=== PATIENT | female | born 1950 | race Caucasian/White ===

== ENCOUNTER 2019-03-27 09:45 | Outpatient (CLI) | payer MEDICARE, BC, SELFPAY ==
--- NOTE | 2019-03-27 09:43 | DI.RAD_ITS ---
SYMPTOMS/DIAGNOSIS: MILLER KNEE PAIN LEG LENGTH EXAM AND BILATERAL KNEES: In the left knee there is moderate narrowing of the lateral femoral tibial joint space. Mild periarticular spurring is seen at the posterior patella. There is a small joint effusion present. In the right knee there is moderate narrowing of the medial femoral tibial joint space and patellar spurring present. The right lower extremity measures 84.4 cm. The left lower extremity measures 85.1 cm. Smooth cortical thickening is seen in the mid shaft of the right femur. This appears to reflect an old femoral fracture. IMPRESSION: Bilateral osteoarthritis of the knees.
== END 2019-03-27 10:05 ==
PROVIDERS: PCP Family Medicine; Referring Provider Family Medicine; Visit Provider Student in an Organized Health Care Education/Training Program
DX: M25.561 Pain in right knee (principal); M25.562 Pain in left knee; M25.462 Effusion, left knee; M17.0 Bilateral primary osteoarthritis of knee; M21.70 Unequal limb length (acquired), unspecified site
CPT/HCPCS: 99203; 99204; 73560; 77073

== ENCOUNTER 2019-04-02 13:49 | Outpatient (CLI) | payer MEDICARE, BC, SELFPAY ==
[2019-04-02 15:17] LABS: HCT 42.9 % (36.0-46.0); HGB 14.1 g/dL (12.0-15.5); Mean Corp. HGB Concentration 32.9 g/dL (32.0-36.0); Mean Corpuscular Volume 88.3 fL (80-95); Mean Platelet Volume 9.4 fL (8.0-11.0); Platelet Count 268 x1000/uL (130-400); RBC 4.86 m/cumm (4.00-5.20); RBC Distribution Width 13.7 % (11.7-14.6); White Blood Cell Count 5.74 k/cumm (4.4-10.8)
[2019-04-02 16:05] LABS: Anion Gap 8.8 mmol/L (3-11); BUN 20 mg/dL (7-18); CO2 29.2 mmol/L (21.0-32.0); CREATININE 0.82 mg/dL (0.55-1.02); Calcium 9.6 mg/dL (8.5-10.1); Chloride 105 mmol/L (98-107); Glucose 100 mg/dL (70-100); Potassium 4.3 mmol/L (3.5-5.1); Sodium 143 mmol/L (136-145)
--- NOTE | 2019-04-02 16:27 | W.PREOPHP ---
Date of service: 04/02/19 Time of Service: 13:27 Assessment and Plan (1) Primary osteoarthritis of left knee: Current visit: Yes Status: Chronic The patient and spouse are given an overview of the surgical procedure with prosthetic components to help delineate fully what will happen on her day of surgery on 04/09/2019. The possible complications and measures used to ameliorate those complications are reviewed. The patient brings a long list of questions to review which I addressed to make sure she is comfortable for what she is about to undertake. Her participation with range of motion after surgery is impressed upon her to get optimal result. History of Present Illness Chief Complaint: left knee pain Narrative: jd is seen with a multiple year of progressive bilateral knee pain left> right unrelived by nsaids and previous injective therapy performed at [facility] becoming less effective. She has had standing plain films that show significant OA with [id number] contact laterally with medial compartment narrowing as well with periarticular osteophytes throughout her knees. Her left knee is radiographically worse than her right prompting the recommendation to do left TKA first so she can resume her active lifestyle pain-free and improve her functional quality of life. Pertinent Surgical Information Denies previous medical history of: stroke, TIA, IA, use of sublingual nitroglycerin, GERD, seizures, diabetes, thyroid disease, sleep apnea, liver disease, hepatitis, hematologic disorders Denies previous complications from surgery or anesthesic agents with respect to high fever, prolonged vomiting and difficulty waking up Review of Systems Constitutional Denies fever(s) and Denies headache(s) ENT Denies headache(s), Denies nasal congestion, Denies nasal discharge and Denies sore throat Cardiovascular Denies chest pain, Denies chest pain with activity, Denies palpitations, Denies dyspnea on exertion, Denies orthopnea and Denies paroxysmal nocturnal dyspnea Respiratory Denies cough, Denies excessive phlegm production, Denies pain on inspiration, Denies dyspnea on exertion and Denies wheezing Gastrointestinal Denies abdominal pain, Denies melena, Denies hematochezia, Denies nausea and Denies vomiting Genitourinary Denies hematuria, Denies urinary frequency and Denies dysuria Comments: Denies burning sensation with urination Musculoskeletal Reports as per HPI Neurologic Denies headache(s) Psychiatric Denies anxiety and Denies depression Endocrine Denies palpitations Comments: Denies any unplanned weight changes Allergic/Immunologic Denies wheezing PFSH Medical History History of postoperative nausea and vomiting (Acute) Depression (Chronic) GERD (gastroesophageal reflux disease) (Chronic) Hypothyroidism Surgical History Hx of decompression of ulnar nerve (Acute) Hx of joint surgery (Acute) section Colonoscopy - MAC Extraction of cataract Repair, Rotator Cuff Family History Mother Alcohol abuse Depression Neoplasm Father Hyperlipidemia Brother Diabetes Hyperlipidemia Grandfather Alcohol abuse Grandmother Glaucoma Grandfather Heart disease Hyperlipidemia Grandmother Diabetes Daughter Essential hypertension Depression Asthma Daughter Essential hypertension Depression Social History Smoking/Tobacco Use Status: Current every day Drug use: Never Meds Home Medications Medication Instructions Recorded Confirmed Type bupropion HCl (smoking deter) 150 mg PO BID #180 tab-cap 07/26/17 04/02/19 Rx simvastatin 40 mg tablet 40 mg PO DAILY #90 tab-cap 08/07/18 04/02/19 Rx levothyroxine 50 mcg tablet 50 mcg PO DAILY #90 tab-cap 02/18/19 04/02/19 Rx omeprazole magnesium 20 mg 20 mg PO DAILY #90 tab 02/18/19 04/02/19 Rx tablet,delayed release L. acidophilus 5 mg-digestive 1 cap PO DAILY cap 04/02/19 04/02/19 History enzymes combo no.5 250 mg capsule cholecalciferol (vitamin D3) 2,000 2,000 unit PO DAILY 04/02/19 04/02/19 History unit capsule ibuprofen 200 mg tablet 800 mg PO BID PRN tab 04/02/19 04/02/19 History naproxen sodium 220 mg capsule 220 mg PO HS PRN cap 04/02/19 04/02/19 History Allergies Allergy/AdvReac Type Severity Reaction Status Date / Time No Known Allergies Allergy Unverified 04/02/19 12:53 Exam Const General: cooperative HENMT Throat: posterior oropharynx normal Eyes General: appearance normal, both eyes and all related structures Conjunctivae: conjunctivae normal Sclera: sclerae normal Neck Neck: no JVD Carotids: normal carotid upstroke and no bruits Resp Effort & Inspection: normal respiratory effort and able to speak in complete sentences Auscultation: clear to auscultation bilaterally, no rales, no rhonchi and no wheezes Cardio Rate: regular rate Heart Sounds: S1 normal, S2 normal and no murmurs Bruits: no abdominal aortic bruits Pulses: normal peripheral pulses Other: No pulsatile mass noted with palpation over the abdominal aorta GI Palpation: soft and no hepatosplenomegaly Auscultation: normal bowel sounds General: No CVA tenderness Extrem General: no pedal edema Other: Normal sensation to light touch No web space cracks or splits noted normal distal pulses. Left knee has a valgus deformity with full extension and flexion intact to 130 degrees Results Labs : 04/02/19 15:04 04/02/19 15:04 Laboratory Results - last 24 hr 04/02/19 04/02/19 15:04 15:04 WBC 5.74 RBC 4.86 Hgb 14.1 Hct 42.9 MCV 88.3 MCH 29.0 MCHC 32.9 RDW 13.7 Plt Count 268 MPV 9.4 Sodium 143 Potassium 4.3 Chloride 105 Carbon Dioxide 29.2 Anion Gap 8.8 BUN 20 H Creatinine 0.82 Estimated GFR/1.73 m2 >= 60.00 Glucose 100 Calcium 9.6
== END 2019-04-02 14:09 ==
PROVIDERS: PCP Family Medicine; Visit Provider Student in an Organized Health Care Education/Training Program
DX: Z01.818 Encounter for other preprocedural examination (principal); K21.9 Gastro-esophageal reflux disease without esophagitis; M17.12 Unilateral primary osteoarthritis, left knee
CPT/HCPCS: 36415; 80048; 85027; NC OV

== ENCOUNTER 2019-04-09 08:49 | Inpatient (IN) | payer MEDICARE, BC, SELFPAY ==
[2019-04-02 14:12] VITALS: BP 118/76; PULSE 65; RESP 16; TEMP 36.2; O2SAT 98
[2019-04-09] VITALS (18 sets, daily range): BP systolic 108–145; BP diastolic 58–86; PULSE 64–77; RESP 11–20; TEMP 36–36.6; O2SAT 92–99
[2019-04-09] MEDS: Celecoxib 200 MG CAP 400 MG PO (09:26)
[2019-04-09] MEDS: Acetaminophen 500 MG TAB 1000 MG PO (09:26)
[2019-04-09] MEDS: oxyCODONE-CR 10 MG TABCR PO (09:26)
[2019-04-09] MEDS: Lactated Ringers 1,000 ML 80 ML IV ×3 (09:27→14:32)
[2019-04-09] MEDS: Gabapentin 300 MG CAP PO ×2 (09:27→22:20)
[2019-04-09] MEDS: Bupivacaine 0.25% Pres-Free 10 ML VIAL (10:10)
[2019-04-09] MEDS: Bupivacaine LIPOSOME/PF 133 MG/10 ML VIAL IJ ×2 (10:10→12:05)
[2019-04-09] MEDS: ceFAZolin 2 GM/50 ML BAG IVPB (10:50)
[2019-04-09] MEDS: Ketorolac 30 MG/ML VIAL (12:05)
[2019-04-09] MEDS: Bupivacaine 0.25% Pres-Free 30 ML VIAL (12:05)
[2019-04-09] MEDS: Normal Saline 50 ML (12:05)
[2019-04-09] MEDS: Normal Saline Flush 10 ML SYR IV ×3 (14:31→18:12)
--- NOTE | 2019-04-09 16:05 | PT.INIE ---
Date of service: 04/09/19 Time of Service: 15:40 PT Notes Inpatient Physical Therapy Evaluation Date: 04/09/19 Referring Doctor: Dr. Monk PT Orders: PT CONSULT: s/p L TKA Precautions: fall, standard Patient Profile/Admitting Diagnosis: Patient admitted s/p L TKA post op day 0. PMHX: h/o left knee injections Social History/Home Situation: [place] between [place] and [place]. [place] in [place] the [place], she lives in a 40' camper at [facility]. She has 3 GEMA with single rail, then 2 GEMA her bedroom. Her is present at time of evaluation, and reports that Edna is very active at baseline, although has been limited in the past year by her knee pain. Equipment Owned/DME: none Subjective: Edna reports that she is still feeling extremely nauseous. States that she's been vomiting and does not feel able to get up at this time. She is receptive to initiation of bed exercises and education. Objective: General Observation: Resting in bed with NAGI wrap and cryocuff to LLE. She has an IV in [facility]. Mental Status: A&Ox3. Verbalizes severe nausea, particularly with head movements. Pain: 0/10 ROM: Right Upper Extremity: WFL Left Upper Extremity: WFL Right Lower Extremity: WFL Left Lower Extremity: Left hip ROM is WFL. Knee is resting in full extension. Knee flexion was not assessed. Strength: Right Upper Extremity: WFL Left Upper Extremity: WFL Right Lower Extremity: WFL Left Lower Extremity: Ankle DF is 3/5 or greater. She's functionally able to perform SLR without extension lag. Sensation: intact distally Bed Mobility/Transfers: Unable to perform due to nausea and vomiting. Gait: Unable to assess Balance: Static Sitting: unable to assess due to nausea Dynamic Sitting: unable to assess due to nausea Static Standing: unable to assess due to nausea Dynamic Standing: unable to assess due to nausea Special Tests: Mobility Limitations Standardized Measure [facility] AM-PAC 6 clicks Basic Mobility Inpatient Short Form: Raw Score: 9 CMS Score: 81% deficit Informed Consent/Education: Patient instructed in purpose of PT consult and plan of care. Treatment: Patient was instructed in early open chain strengthening activities as follows: 1. ankle pumps x 10 2. quad sets x 10 3. gluteal sets x 10 4. SLR x 5 Assessment: Patient is a 68 year old female referred to physical therapy services with the diagnosis of left knee OA, s/p L TKA post op day 0. Patient presents with clinical signs and symptoms consistent with post-op status, with limited functional mobility due to post-operative nausea. She currently demonstrates the following impairment level findings: 1. Decreased L knee ROM 2. Decreased LLE functional strength 3. Decreased activity tolerance 4. Unable to transfer Impairments are contributing to the following functional limitations: 1. Unable to transfer 2. Unable to ambulate 3. Unable to manage stairs Patient is assessed as a Low [id number] complexity based on the following: History: Active and independent 68 year old female, post op day 0 from L TKA. Evaluation is limited due to post-operative nausea and vomiting. Patient does not have any significant complicating factors, and has supportive family present at time of evaluation. She expresses her desire to do well with PT, and I anticipate that she will progress very well once she fully recovers from anesthesia. Examination: functional limitations as above Presentation: evolving Decision Making: low complexity Goals: Goals X1 week 1. Supine-Sit : supervision 2. Sit-Supine : supervision 3. Sit-Stand : supervision 4. Stand-Sit : supervision 5. Bed-Chair : supervision with FWW 6. Chair-Bed : supervision with FWW 7. Gait : supervision with FWW x 100' 8. Stairs: patient able to ascend and descend 3 steps with unilateral UE support and supervision 9. Independent with home exercise program Plan of Care/Treatment Plan: 1-2x/day, 7 days/week x 1 week. Plan of care has been reviewed with the CLINCHING MACHINE OPERATOR providing the service under Physical Therapy direction. Initiate Physical Therapy intervention for strengthening, bed mobility, transfers, gait, stairs, balance training, use of assistive device. DISCHARGE RECOMMENDATIONS: Will require FWW prior to discharge TREATMENT CODE/TIME: 3:40-4:00 ([id number]) Emelyn Zazueta, PT, DPT [facility]
--- NOTE | 2019-04-09 16:20 | IN_ITS ---
Date of service: 04/09/19 Time of Service: 15:40 PT Notes Inpatient Physical Therapy Evaluation Date: 04/09/19 Referring Doctor: Dr. Monk PT Orders: PT CONSULT: s/p L TKA Precautions: fall, standard Patient Profile/Admitting Diagnosis: Patient admitted s/p L TKA post op day 0. PMHX: h/o left knee injections Social History/Home Situation: Patient splits her time between [place] and [place]. While here in [place] for the summer, she lives in a 40' camper at [facility]. She has 3 GEMA with single rail, then 2 GEMA her bedroom. Her is present at time of evaluation, and reports that Edna is very active at baseline, although has been limited in the past year by her knee pain. Equipment Owned/DME: none Subjective: Edna reports that she is still feeling extremely nauseous. States that she's been vomiting and does not feel able to get up at this time. She is receptive to initiation of bed exercises and education. Objective: General Observation: Resting in bed with NAGI wrap and cryocuff to LLE. She has an IV in [facility]. Mental Status: A&Ox3. Verbalizes severe nausea, particularly with head movements. Pain: 0/10 ROM: Right Upper Extremity: WFL Left Upper Extremity: WFL Right Lower Extremity: WFL Left Lower Extremity: Left hip ROM is WFL. Knee is resting in full extension. Knee flexion was not assessed. Strength: Right Upper Extremity: WFL Left Upper Extremity: WFL Right Lower Extremity: WFL Left Lower Extremity: Ankle DF is 3/5 or greater. She's functionally able to perform SLR without extension lag. Sensation: intact distally Bed Mobility/Transfers: Unable to perform due to nausea and vomiting. Gait: Unable to assess Balance: Static Sitting: unable to assess due to nausea Dynamic Sitting: unable to assess due to nausea Static Standing: unable to assess due to nausea Dynamic Standing: unable to assess due to nausea Special Tests: Mobility Limitations Standardized Measure [facility] AM-PAC 6 clicks Basic Mobility Inpatient Short Form: Raw Score: 9 CMS Score: 81% deficit Informed Consent/Education: Patient instructed in purpose of PT consult and plan of care. Treatment: Patient was instructed in early open chain strengthening activities as follows: 1. ankle pumps x 10 2. quad sets x 10 3. gluteal sets x 10 4. SLR x 5 Assessment: Patient is a 68 year old female referred to physical therapy services with the diagnosis of left knee OA, s/p L TKA post op day 0. Patient presents with clinical signs and symptoms consistent with post-op status, with limited functional mobility due to post-operative nausea. She currently demonstrates the following impairment level findings: 1. Decreased L knee ROM 2. Decreased LLE functional strength 3. Decreased activity tolerance 4. Unable to transfer Impairments are contributing to the following functional limitations: 1. Unable to transfer 2. Unable to ambulate 3. Unable to manage stairs Patient is assessed as a Low [id number] complexity based on the following: History: Active and independent 68 year old female, post op day 0 from L TKA. Evaluation is limited due to post-operative nausea and vomiting. Patient does not have any significant complicating factors, and has supportive family present at time of evaluation. She expresses her desire to do well with PT, and I anticipate that she will progress very well once she fully recovers from anesthesia. Examination: functional limitations as above Presentation: evolving Decision Making: low complexity Goals: Goals X1 week 1. Supine-Sit : supervision 2. Sit-Supine : supervision 3. Sit-Stand : supervision 4. Stand-Sit : supervision 5. Bed-Chair : supervision with FWW 6. Chair-Bed : supervision with FWW 7. Gait : supervision with FWW x 100' 8. Stairs: patient able to ascend and descend 3 steps with unilateral UE support and supervision 9. Independent with home exercise program Plan of Care/Treatment Plan: 1-2x/day, 7 days/week x 1 week. Plan of care has been reviewed with the SOLAR SALES CONSULTANT providing the service under Physical Therapy direction. Initiate Physical Therapy intervention for strengthening, bed mobility, transfers, gait, stairs, balance training, use of assistive device. DISCHARGE RECOMMENDATIONS: Will require FWW prior to discharge TREATMENT CODE/TIME: 3:40-4:00 ([id number]) Emelyn Zazueta, PT, DPT [facility]
[2019-04-09] MEDS: LORazepam 2 MG/ML VIAL 0.5 MG IVP (16:43)
[2019-04-09] MEDS: Ondansetron 4 MG/2 ML VIAL IVP (18:11)
[2019-04-09] MEDS: buPROPion-CR 150 MG TABCR PO (20:13)
[2019-04-09] MEDS: Aspirin E.C. 81 MG TABEC (20:14)
[2019-04-09] MEDS: Celecoxib 200 MG CAP PO (20:14)
[2019-04-09] MEDS: Simvastatin 40 MG TAB PO (20:14)
[2019-04-09] MEDS: oxyCODONE 5 MG TAB PO (22:19)
[2019-04-10] MEDS: Lactated Ringers 1,000 ML 80 ML IV (03:31)
[2019-04-10 03:35] VITALS: BP 114/67; PULSE 71; RESP 18; TEMP 36.6; O2SAT 98
[2019-04-10] MEDS: oxyCODONE 5 MG TAB PO ×2 (03:48→16:25)
[2019-04-10] MEDS: Levothyroxine 50 MCG TAB PO (06:09)
--- NOTE | 2019-04-10 06:36 | ROE_ITS ---
Date of service: 04/09/19 Time of Service: 13:33 Operative Note DATE OF PROCEDURE: 04/09/19 PRE-OP DIAGNOSIS: Left knee osteoarthritis POST-OP DIAGNOSIS: same PROCEDURE: Left Total Knee Replacement SURGEON: Galo Monk INSULATION CUTTER AND FORMER: Ruiz Calderon ANESTHESIA: regional and spinal ESTIMATED BLOOD LOSS: 100 PATHOLOGY: none sent COMPLICATIONS: None Patient was transported to: PACU Patient's condition: stable Implants: 1. Depuy Attune Posterior Stabilized Femoral Component, Size 4 2. Depuy Attune Fixed Platform Tibial Component, Size 3 3. Depuy Attune 4 x 8 mm fixed, Stabilized Poly 4. Depuy Attune Patellar Component, Size 32 mm Indications: I have seen Edna in clinic for symptoms of left knee arthritis, confirmed with radiographic findings. She has exhausted nonoperative methods and was having significant limitations in daily function and desired better function and less pain. I discussed the technical details of a knee replacement. I explained the risks of the procedure to include, but not limited to, bleeding, infection, pain, stiffness, fracture, damage to nerves and vessels, damage to muscles and tendons, loosening, need for repeat procedure, blood clot and cardiopulmonary demise. Despite these risks, she elected to proceed. Findings: There was significant signs of arthritis throughout the knee. These are most pronounced in the lateral compartment especially lateral femur which had no notable cartilage over his distal end. Procedure Description: Edna was greeted in the preoperative holding area where the correct side was identified and marked. The consent was reviewed with the patient and signed. The history and physical was updated. All questions were answered. Preoperative mediacations were administered: Acetaminophen 1000mg, Celebrex 400mg, Gabapentin 300mg, and Oxycontin 10mg. An adductor canal block was then administered by the anesthesia team in the PACU. Edna was taken back to the operating room. A spinal anesthestic was then administered. The patient was placed into the supine position on the operating room table. A nonsterile tourniquet was placed high onto the leg but only used for cementing. Posts were placed for positioning during the procedure. All bony prominences were well padded. Prophylactic antibiotics in the form of cefazolin were administered. 1g of Tranxemic Acid was given intravenously within 30 minutes of incision. The left leg was then prepped with Chloraprep and draped in a standard fashion with impervious stockinette and extremity drape with Iodine impregnated skin protection. A timeout to confirm correct identity, side and site, procedure, allergies, anesthesia, and medical concerns was performed. With the knee in some flexion, a midline incision was made overlying the knee. Full thickness skin flaps were raised once the extensor mechanism was encountered. These were raised medially and laterally. Any bleeding was controlled with electrocautery. Once the extensor mechanism was fully exposed, a medial parapatellar arthrotomy was performed in a flexed position. All bleeding from the arthrotomy and the geniculate arteries was coagulated. A medial subperiosteal peel was performed with electrocautery to the midcoronal plane. The fat pad was removed while keeping the patellar tendon protected. The anterior distal femur synovium was removed for later visualization. The ACL and PCL were resected and the anterior horn of the lateral meniscus was transected. The knee was then flexed with the patella everted. Using a step drill, and based on preoperative templating, the femoral canal was entered. This was done with a step drill without any difficulty. The intramedullary distal femoral cut guide was inserted, set to a 5 degree valgus cut and 9mm cut thickness. There was some hypoplasia of the lateral femoral condyle and any remnant cartilage of the medial femoral condyle was removed for appropriate thickness. The distal femoral cut guide was then held in position and pinned. With the soft tissues protected, the distal cut was performed. This was passed over a few times to ensure a planar cut. I then turned attention to the tibia. The extramedullary guide was placed onto the leg. The distal aspect was slid medial to adjust for position of center of ankle and stay in line with shaft of the tibia. Approximately 3-5 degrees of posterior slope was kept in the proximal cutting guide. The center of the guide was aligned with the PCL. The stylus was used to assess cut thickness. The lateral side was set for a 4 mm cut. This was then held in position and pinned into place with 2 additional pins and a cross pin for stability. The medial and lateral collateral ligaments were protected and the cut was performed. With this completed, it was assessed and noted to be of appropriate dimensions. The guide was removed. A spacer block was inserted and the knee was brought into extension. The 7 mm spacer block provided full extension, without hyperextension and with stability of both the medial and lateral collateral ligaments was assessed. The pins from the femur and the tibia were then removed. The distal femur was then sized. The anterior stylus was placed onto the late ral ridge of the anterior femur. This indicated a size 4 femur. The external rotation of the guide was adjusted to 5 degrees to match the epicondylar axis, perpendicular to Bacon?s line. The 4-in-1 cutting guide was the placed. The posterior medial femur cut was evaluated and appeared of good thickness. The spacer block was inserted underneath the cutting guide and stability was confirmed in 90 degrees of flexion. An cy wing was used to confirm appropriate position of the anterior cut to avoid notching. This cutting guide was ensured to be flush on the cut surface and then pinned into place with headed pins. While protecting the soft tissues, quad tendon, and collateral ligaments, the anterior and posterior cuts were performed with a saw. The central two pins were removed and the posterior and anterior chamfers were cut next. The notch-cutting guide was placed. This was pinned to lateralize the femoral component as much as possible while keeping it flush on the cut surface. This was then pinned into position. A reciprocating saw was used to make the notch cut. A rasp smoothed the cut surfaces. A trial posterior stabilized femoral component was then inserted, impacted down to the cut surfaces, and the lug holes were drilled. A provisional trial tibial component was placed and the knee was brought through range of motion. The polyethylene was trialed until there was good flexion and extension with excellent stability to the medial and lateral collaterals. The patella was tracking without thumbs. The tibial cut surface was fully exposed. The medial and lateral menisci were removed. The tibia was then sized as a 3. The tibia had been previously marked during trialing to correspond to the center of the tibial component to help with rotation. The trial was aligned to this ruiz, approximately rotated to the medial 1/3rd of the tibial tubercle. The trial was pinned into place. The tibia was prepared with a reamer and a keel punch. The knee was then brought into extension and the patella was measured as 22 mm. Using the patellar clamp and cut guide, this was resected to a flat surface with at least 13mm of thickness remaining. The size 32 mm patella fit the best. This was oriented and then clamped into position. The lugs were drilled. The trial components were removed. The final components, except for the polyethylene were opened on the back table. The periosteal and capsular tissues, especially posteriorly, around the knee were then systematically injected with a periarticular cocktail consisting of 50cc 0.25% Marcaine, 30mg Ketorolac, 20cc of Exparal and 50cc of injectable saline. The tourniquet was then inflated to 275mmHg. The knee was thoroughly irrigated with a pulse lavage and dried. On the back table, with the implants opened, the cement was mixed. 2 batches of antibiotic laden cement were prepared with vacuum assistance. After the cement was ready a small amount was placed on to the back side of the tibial component at the keel. A small amount was placed onto the posterior flange of the femur. Cement was manual pressurized and impregnated into the cut surface of the tibia. The tibial component was then inserted into the cut surface and impacted into position. Excess cement was removed and the component was reimpacted. Again, excess cement was removed and our attention was then turned to the femur. The femoral cut surface was once again dried and cement was manually impacted into the cut surface. The femoral component was lined with the lug holes and impacted. Excess cement was removed. It was ensured to be down against the cut surface. The trial polyethylene was then inserted and the leg was brought out into full extension for the duration of the cement curing process, approximately 15min. Cement was lastly manually impacted into the cut surface of the patella and the patellar button was clamped into position and held. During this process attention was turned to the gutters of the knee and for all interfaces for any excess cement. After the cement had finally cured, approximately 15min, the clamp was removed from the patella and the knee was taken through range of motion. A size 8 mm polyethylene component provided the best range of motion and stability with less than 2mm gapping with medial and lateral stress and full extension without significant hyperextension. The patella was tracking with a no-thumbs technique. The trial poly was removed and once again the knee was checked for any loose, excess, or errant cement. The poly component was then inserted and impacted into position after cleaning and drying the tibial tray. The capsule was then reapproximated with a No. 1 Vicryl at multiple locations. The capsule was finally closed with a No. 2 Stratafix, barbed suture. The tourniquet was then released and the arthrotomy appeared watertight without significant bleeding. The second dosing of 1g TXA was started. Deep tissues were then reapproximated with 0 Vicryl and 2-0 Vicryl. The skin was closed with a running 3-0 Monocryl in a subcuticular fashion. This was reinforced with skin glue. A Mepilex silver dressing was applied along with a [id number] NAGI wrap. A CryoCuff was applied. Edna was transferred to the hospital bed without difficulty an suffering no apparent complication. Edna has a good prognosis. Physical therapy will start today and without restrictions, weight-bearing as tolerated. Aspirin 81mg BID will be used for DVT prophylaxis.
[2019-04-10] MEDS: Omeprazole 20 MG CAPCR PO (08:02)
[2019-04-10 08:09] VITALS: BP 121/78; PULSE 78; RESP 18; TEMP 36.1; O2SAT 98
--- NOTE | 2019-04-10 09:01 | PT.INTREAT ---
Date of service: 04/10/19 Time of Service: 09:01 PT Notes Inpatient Physical Therapy Treatment Note [facility] Date: 04/10/2019 PRECAUTIONS: WBAT L SUBJECTIVE: Edna states that she is feeling much better than she was yesterday, she is agreeable to participating in PT. In the afternoon, patient stating that she has been nauseous for most of the day. OBJECTIVE: PAIN: No complaints of pain BED MOBILITY/TRANSFERS Supine-sit: I with HOB flat Sit-supine: I with HOB flat Sit-stand: SBA Stand-sit: SBA Bed-Chair: GAIT Assistive Device: FWW Weight bearing: WBAT L Assist: CGA-SBA in a.m.; SBA in p.m. Distance: 100' in a.m.; 50' x2 in p.m. Deviation: Complaint of nausea at end of gait training THEREX: Patient completed a lower extremity strengthening and stabilization program, in a supine position, as per flow sheet. STAIRS: Up/down 3x4 and 2x6 using B rails and a step-to pattern with supervision. ASSESSMENT: Patient tolerated session well, with complaint of nausea following gait training. Patient was able to tolerate a progression in gait distance with FWW support and SBA. Patient would benefit from continued gait and transfer training as well as strengthening for improved mobility and improved ability to perform daily functional tasks at a more independent level. PLAN: Continue with PTs POC TREATMENT CODE/TIME: Session 1: 30 minutes; [id number], [id number] Session 2: 30 minutes; [id number], [id number]
[2019-04-10] MEDS: Normal Saline Flush 10 ML SYR IV ×2 (09:40→21:35)
[2019-04-10] MEDS: Ondansetron 4 MG/2 ML VIAL IVP (09:40)
[2019-04-10] MEDS: Aspirin E.C. 81 MG TABEC PO ×2 (09:41→20:37)
[2019-04-10] MEDS: Celecoxib 200 MG CAP PO ×2 (09:41→20:38)
[2019-04-10] MEDS: buPROPion-CR 150 MG TABCR PO ×2 (09:41→20:38)
--- NOTE | 2019-04-10 10:10 | PDOC.CMIN ---
Care Management Initial Assess REASON FOR HOSPITALIZATION:: s/p L TKA PAST MEDICAL HISTORY/PAST SURGICAL HISTORY:: Medical: H/O post operative N/V, depression, GERD, hypothyroidism. Surgical: H/O decompression of ulnar nerve, H/O joint surgery, , colonoscopy, cataract extraction, rotator cuff repair. PREVIOUS FUNCTIONAL STATUS/SOCIAL/FAMILY SUPPORTS:: She is 68 yo woman who lives with her Josh. They now spend their mishra in [place] where they bought a condo, and campos are at [facility] in a [facility]. There are 3 steps to enter with rail and 2 steps into her bedroom. They have 2 adult children. She is usually independent with all her ADL's and uses no assistive device. CURRENT FUNCTIONAL STATUS:: She is lying in bed when CM enters. She is having some nausea, but able to engage in discussion re plans. ADVANCE DIRECTIVES:: Document is on file at [facility]. Her Josh is agent and daughters Gracia and Loida are alternates.. Has patient been provided with information about the portal?: Yes Did the patient sign up for the portal?: No CODE STATUS:: Full Code INSURANCE COVERAGE / FINANCIAL ISSUES:: Medicare. BC/BS CURRENT HOME/COMMUNITY SERVICES/EQUIPMENT:: No services or equipment used. PRIMARY CARE PHYSICIAN:: Sherrie Torres MD POTENTIAL DISCHARGE NEEDS:: PT indicates she needs a walker. She has borrowed one from a friend. Will need OP PT after d/c which Dr Monk usually start 2 week following d/c. She will follow-up with Dr Monk as directed. PATIENT/FAMILY EDUCATION NEEDS:: Review d/c instructions re meds and activity levels. Review Ask me Now. ANTICIPATED BARRIERS TO DISCHARGE:: none identified TRANSPORTATION:: via car with . PLAN:: d/c home as per with OP PT as instructed by Dr Monk.
[2019-04-10 10:20] LABS: HCT 36.3 % (36.0-46.0); HGB 11.8 g/dL (12.0-15.5); Mean Corp. HGB Concentration 32.5 g/dL (32.0-36.0); Mean Corpuscular Volume 89.2 fL (80-95); Mean Platelet Volume 9.4 fL (8.0-11.0); Platelet Count 218 x1000/uL (130-400); RBC 4.07 m/cumm (4.00-5.20); RBC Distribution Width 13.9 % (11.7-14.6); White Blood Cell Count 8.28 k/cumm (4.4-10.8)
[2019-04-10 11:23] LABS: Anion Gap 7.4 mmol/L (3-11); BUN 14 mg/dL (7-18); CO2 28.6 mmol/L (21.0-32.0); CREATININE 0.77 mg/dL (0.55-1.02); Calcium 8.5 mg/dL (8.5-10.1); Chloride 105 mmol/L (98-107); Glucose 106 mg/dL (70-100); Potassium 3.6 mmol/L (3.5-5.1); Sodium 141 mmol/L (136-145)
[2019-04-10 11:35] VITALS: BP 118/76; PULSE 72; RESP 17; TEMP 36.1; O2SAT 97
[2019-04-10] MEDS: Potassium Chloride 20 MEQ TABCR PO (12:12)
--- NOTE | 2019-04-10 14:00 | INITIAL_ITS ---
Care Management Initial Assess REASON FOR HOSPITALIZATION:: s/p L TKA PAST MEDICAL HISTORY/PAST SURGICAL HISTORY:: Medical: H/O post operative N/V, depression, GERD, hypothyroidism. Surgical: H/O decompression of ulnar nerve, H/O joint surgery, , colonoscopy, cataract extraction, rotator cuff repair. PREVIOUS FUNCTIONAL STATUS/SOCIAL/FAMILY SUPPORTS:: She is 68 yo woman who lives with her Josh. They now spend their mishra in [place] where they bought a condo, and campos are at [facility] in a [facility]. There are 3 steps to enter with rail and 2 steps into her bedroom. They have 2 adult children. She is usually independent with all her ADL's and uses no assistive device. CURRENT FUNCTIONAL STATUS:: She is lying in bed when CM enters. She is having some nausea, but able to engage in discussion re plans. ADVANCE DIRECTIVES:: Document is on file at [facility]. Her Josh is agent and daughters Gracia and Loida are alternates.. Has patient been provided with information about the portal?: Yes Did the patient sign up for the portal?: No CODE STATUS:: Full Code INSURANCE COVERAGE / FINANCIAL ISSUES:: Medicare. BC/BS CURRENT HOME/COMMUNITY SERVICES/EQUIPMENT:: No services or equipment used. PRIMARY CARE PHYSICIAN:: Sherrie Torres MD POTENTIAL DISCHARGE NEEDS:: PT indicates she needs a walker. She has borrowed one from a friend. Will need OP PT after d/c which Dr Monk usually start 2 week following d/c. She will follow-up with Dr Monk as directed. PATIENT/FAMILY EDUCATION NEEDS:: Review d/c instructions re meds and activity levels. Review Ask me Now. ANTICIPATED BARRIERS TO DISCHARGE:: none identified TRANSPORTATION:: via car with . PLAN:: d/c home as per with OP PT as instructed by Dr Monk.
--- NOTE | 2019-04-10 14:57 | CHAPLAIN ---
I checked in with Edna this morning, introduced myself and explained my role. Edna was pleasant and engaged in a conversation. She seems to be well supported by family.
[2019-04-10 16:20] VITALS: BP 118/68; PULSE 76; RESP 16; TEMP 36.9; O2SAT 96
--- NOTE | 2019-04-10 18:51 | PGE_ITS ---
Date of Service Date of service: 04/10/19 Time of Service: 12:25 Assessment and Plan (1) Primary osteoarthritis of left knee: Current visit: No Status: Chronic Edna is a 68-year-old status post left knee replacement. Unfortunately, she has been complicated with nausea. I did check some labs which did not striated a drop in hemoglobin consistent with acute postoperative blood loss anemia from the knee replacement. Her calcium and potassium are both a little lower than her normal. Therefore, I did offer supplementation of calcium and potassium. These were given orally. She has various antiemetics on board. I have encouraged her to ambulate when tolerated. At this point, we do not have a road gang supervisor of her nausea and so therefore she is not ready for discharge home. We will continue with the remainder of her medications. She continues to be on aspirin for DVT prophylaxis. Hopefully, she will be better tomorrow and ready for discharge home. Subjective Interval history since last seen: Edna is postop day #1 status post left knee replacement. She has been doing well in terms of pain control but has struggle with nausea. She had emesis x1. She did respond well to the antinausea medication. She has been able to mobilize and is done so quite well. However, she has had complications with nausea. This morning I did get called about some numbness she was reporting in the left foot and bilateral hands. She says that they feel numb and heavy. However, she has been able to walk and use her hands. She denies any chest pain or shortness of breath. She denies any fevers or chills. Exam Narrative Exam Narrative: Edna appears comfortable in the supine position within the bed. She is able to demonstrate a straight leg raise on the left side. The left Christian wrap is intact. No drainage. While she talked about numbness she has a completely normal neurologic exam. Sensation intact light touch of the superficial peroneal nerve, deep peroneal nerve, and tibial nerves. The foot is warm and well-perfused with a palpable DP and PT pulse. She has 5 out of 5 strength ankle dorsiflexion, ankle plantarflexion, great toe extension, great toe flexion, and eversion. Bilateral hands again show a normal neurologic examination with intact sensation of the median, radial, ulnar nerves. Objective Objective Clinical Data: Abnormal lab results 04/10/19 04/10/19 Range/Units 10:06 10:06 Hgb 11.8 L (12.0-15.5) g/dL Glucose 106 H (70-100) mg/dL Vital Signs Temperature 36.9 C 04/10/19 16:20 Temperature Source Tympanic 04/10/19 16:20 Pulse 76 04/10/19 16:20 Pulse Rhythm Regular 04/10/19 05:03 Respiratory Rate 16 04/10/19 16:20 Respiratory Effort Non-Labored 04/10/19 05:03 Respiratory Depth Normal 04/10/19 05:03 Respiratory Pattern Normal 04/10/19 05:03 Blood Pressure 118/68 04/10/19 16:20 Pulse Oximetry 96 04/10/19 16:20 Respiratory End-tidal CO2 33 04/09/19 13:42 Oxygen Delivery Method Room Air 04/10/19 16:20 Oxygen Flow Rate 0 04/10/19 16:20 Pain Level 5 04/10/19 16:25 Intake & Output 04/09/19 04/10/19 04/10/19 23:59 11:59 23:59 Intake Total 973.334 / 3458.027 3960.334 / 1335.334 Output Total 400 / 400 1400 / 1400 Balance 573.334 / 683.334 -64.666 / -64.666 Intake: IV 973.334 / 8288.819 9639.334 / 1135.334 Oral 200 / 200 Output: Urine 250 / 250 1400 / 1400 Estimated Blood Loss 150 / 150 Other: Urine Color Pale Yellow Urine Appearance Clear Clear Laboratory Results WBC 8.28 k/cumm (4.4-10.8) 04/10/19 10:06 RBC 4.07 m/cumm (4.00-5.20) 04/10/19 10:06 Hgb 11.8 g/dL (12.0-15.5) L 04/10/19 10:06 Hct 36.3 % (36.0-46.0) 04/10/19 10:06 MCV 89.2 fL (80-95) 04/10/19 10:06 MCH 29.0 pg (27.0-33.0) 04/10/19 10:06 MCHC 32.5 g/dL (32.0-36.0) 04/10/19 10:06 RDW 13.9 % (11.7-14.6) 04/10/19 10:06 Plt Count 218 x1000/uL (130-400) 04/10/19 10:06 MPV 9.4 fL (8.0-11.0) 04/10/19 10:06 Sodium 141 mmol/L (136-145) 04/10/19 10:06 Potassium 3.6 mmol/L (3.5-5.1) 04/10/19 10:06 Chloride 105 mmol/L (98-107) 04/10/19 10:06 Carbon Dioxide 28.6 mmol/L (21.0-32.0) 04/10/19 10:06 Anion Gap 7.4 mmol/L (3-11) 04/10/19 10:06 BUN 14 mg/dL (7-18) 04/10/19 10:06 Creatinine 0.77 mg/dL (0.55-1.02) 04/10/19 10:06 Estimated GFR/1.73 m2 >= 60.00 (mL/min/1.73m2) 04/10/19 10:06 Glucose 106 mg/dL (70-100) H 04/10/19 10:06 Calcium 8.5 mg/dL (8.5-10.1) 04/10/19 10:06
[2019-04-10] MEDS: Simvastatin 40 MG TAB PO (20:38)
[2019-04-10] MEDS: Calcium Citrate 950 MG TAB PO (20:38)
[2019-04-10 21:09] VITALS: BP 134/70; PULSE 71; RESP 18; TEMP 36.6; O2SAT 98
[2019-04-10] MEDS: Gabapentin 300 MG CAP PO (21:35)
[2019-04-10] MEDS: Promethazine 25 MG TAB PO (21:50)
[2019-04-11 00:44] VITALS: BP 106/69; PULSE 80; RESP 18; TEMP 36.6; O2SAT 96
[2019-04-11 04:40] VITALS: BP 114/73; PULSE 62; RESP 16; TEMP 37.3; O2SAT 94
[2019-04-11] MEDS: Levothyroxine 50 MCG TAB PO (06:55)
[2019-04-11] MEDS: Celecoxib 200 MG CAP PO (07:46)
[2019-04-11] MEDS: buPROPion-CR 150 MG TABCR PO (07:47)
[2019-04-11] MEDS: Omeprazole 20 MG CAPCR PO (07:47)
[2019-04-11] MEDS: Aspirin E.C. 81 MG TABEC PO (07:47)
[2019-04-11] MEDS: Calcium Citrate 950 MG TAB PO (07:47)
[2019-04-11] MEDS: oxyCODONE 5 MG TAB PO (08:06)
[2019-04-11] MEDS: Docusate Sodium 100 MG CAP PO (08:07)
[2019-04-11] MEDS: Polyethylene Glycol 3350 17 GM PACKET PO (08:07)
--- NOTE | 2019-04-11 10:26 | W.PM.DS.N ---
Date of service: 04/11/19 Time of Service: 10:26 DS: Diagnosis Discharge Diagnosis (1) Primary osteoarthritis of left knee: Status: Chronic Discharge Plan Disposition Patient Disposition: HOME Condition: Good Discharge Details Reason For Visit: LEFT KNEE DJD Admit Date/Time: 04/09/19 08:49 Admit Provider: Galo Monk Attending Provider: Galo Monk Primary Care Provider: [facility] Hospital Course: Patient was admitted to the medical/surgical floor following the procedure. It was tolerated well without any notable medical, surgical, or anesthetic complications. Mobilization began postoperatively. The walden catheter was removed and voiding spontaneously. In the early post-operative period she did have nausea and one episode of emesis. She responded to anti-emetics. Vitals were stable. Physical therapy worked with the patient and was cleared for discharge home. No acute medical issues. Home Meds and New Rx's Prescriptions: New celecoxib 200 mg capsule 200 mg PO BID PRN (Reason: pain) Qty: 60 RF: 1 aspirin 81 mg tablet,delayed release (DR/EC) 81 mg PO BID Qty: 60 RF: 0 acetaminophen 500 mg tablet 1,000 mg PO Q8H PRN (Reason: pain) Qty: 90 RF: 3 gabapentin 300 mg capsule 300 mg PO QHS Qty: 7 RF: 0 oxycodone 5 mg tablet 5 mg PO Q4H Qty: 15 RF: 0 ondansetron 4 mg tablet,disintegrating 4 mg PO TID PRN (Reason: nausea and vomiting) Qty: 12 RF: 0 promethazine 12.5 mg tablet 12.5 mg PO Q6H PRN (Reason: nausea and vomiting) Qty: 5 RF: 0 Continued cholecalciferol (vitamin D3) 2,000 unit capsule 2,000 unit PO DAILY RF: 0 Probiotic-Digestive Enzymes 5-250 mg capsule 1 cap PO DAILY RF: 0 bupropion HCl (smoking deter) 150 MG tablet extended release 12 hr 150 mg PO BID Qty: 180 RF: 4 simvastatin 40 mg tablet 40 mg PO DAILY Qty: 90 RF: 4 omeprazole magnesium 20 mg tablet,delayed release (DR/EC) 20 mg PO DAILY Qty: 90 RF: 2 levothyroxine 50 mcg tablet 50 mcg PO DAILY Qty: 90 RF: 2 Discontinued ibuprofen 200 mg tablet 800 mg PO BID PRNRF: 0 naproxen sodium [Aleve] 220 mg capsule 220 mg PO HS PRNRF: 0 Discharge Instructions Additional Instructions: Dr. Monk?s Total Knee Discharge Instructions Activity: The most important activity is to walk. You should try to take short walks a few times a day. It is important that when resting you work on keeping the knee straight. Avoid putting a pillow behind the knee as this will encourage flexion. Work on range of motion exercises as provided by Physical Therapy. - Start outpatient physical therapy within 2 weeks. - You should wear the RAFAEL hose on both legs for 4 weeks. Dressing: Keep the surgical dressing in place for at least one week. After the first week it may be removed and replace with light gauze and tape or nothing. It may get wet after 3 days but avoid soaking the dressing. If it gets wet, just lightly pat dry. Medications: - You should take Tylenol and anti-inflammatory (Celebrex) as your primary pain control medications - You have been prescribed a stronger pain medication (Oxycodone) for breakthrough pain, take as needed as prescribed. You may halve this tablet. - You will be taking Aspirin 81mg twice a day for DVT prevention unless instructed otherwise. - You have been prescribed Ondansetron for nausea. This can be taken with your pain medication. You also have Promethazine for nausea and vomiting if the Ondansetron is not working. Do NOT take the Promethazine with Oxycodone. - If you have constipation you should take Colace or Miralax (both [id number]). It takes most people 3-4 days to have a bowel movement. Follow-up: 2 weeks Referrals: Galo Monk MD [ [facility] STAFF PHYSICIAN] - Activity:: Activity as Tolerated Equipment/Supplies:: Walker Diet:: As Tolerated Discharge Orders Discharge Orders: Discharge Order (Routine); Ordered 04/11/19 Ordered By: Galo Monk DS: Data Vitals/I&O Vitals and I&O: Vital Signs Temperature 37.3 C 04/11/19 04:40 Temperature Source Tympanic 04/11/19 04:40 Pulse 62 04/11/19 04:40 Pulse Rhythm Regular 04/11/19 08:00 Respiratory Rate 16 04/11/19 04:40 Respiratory Effort Non-Labored 04/11/19 08:00 Respiratory Depth Normal 04/11/19 08:00 Respiratory Pattern Normal 04/11/19 08:00 Blood Pressure 114/73 04/11/19 04:40 Pulse Oximetry 94 L 04/11/19 04:40 Respiratory End-tidal CO2 33 04/09/19 13:42 Oxygen Delivery Method Room Air 04/11/19 04:40 Oxygen Flow Rate 0 04/11/19 04:40 Pain Level 9 04/11/19 08:06 Intake & Output 04/10/19 04/10/19 04/11/19 11:59 23:59 11:59 Intake Total 1335.334 / 1585.334 250 / 1585.334 210 / 210 Output Total 1999 0 / 0 Balance -664.666 / -414.666 250 / -414.666 210 / 210 Intake: IV 1135.334 / 1135.334 Oral 200 / 450 250 / 450 210 / 210 Output: Urine 1999 0 / 0 Other: Urine Color Yellow Yellow Urine Appearance Clear Clear Clear Comment VOIDED MEDIUM AMT IN TOILET AND FLUSHED pt voided in the toilet Voiding Methods Toilet Toilet Labs on day of discharge: Labs from last 24 hours 04/10/19 10:06 Sodium 141 Potassium 3.6 Chloride 105 Carbon Dioxide 28.6 Anion Gap 7.4 BUN 14 Creatinine 0.77 Estimated GFR/1.73 m2 >= 60.00 Glucose 106 H Calcium 8.5 PFSH Medical History History of postoperative nausea and vomiting (Acute) Depression (Chronic) GERD (gastroesophageal reflux disease) (Chronic) Hypothyroidism Surgical History Hx of decompression of ulnar nerve (Acute) Hx of joint surgery (Acute) section Colonoscopy - MAC Extraction of cataract Repair, Rotator Cuff Family History Mother Alcohol abuse Depression Neoplasm Father Hyperlipidemia Brother Diabetes Hyperlipidemia Grandfather Alcohol abuse Grandmother Glaucoma Grandfather Heart disease Hyperlipidemia Grandmother Diabetes Daughter Essential hypertension Depression Asthma Daughter Essential hypertension Depression Social History Smoking/Tobacco Use Status: Former Tobacco Use Drug use: Never
--- NOTE | 2019-04-11 10:58 | PT.INTREAT ---
Date of service: 04/11/19 Time of Service: 10:58 PT Notes Inpatient Physical Therapy Treatment Note [facility] Date: 04/11/2019 PRECAUTIONS: WBAT L SUBJECTIVE: Edna reports that she hasn't had any nausea today, she is looking forward to going home later today. OBJECTIVE: PAIN: Patient c/o L knee pain with ther ex and with gait training BED MOBILITY/TRANSFERS Sit-supine: I with HOB flat Sit-stand: SBA Stand-sit: SBA GAIT Assistive Device: FWW Weight bearing: WBAT L Assist: SBA Distance: 150' THEREX: Patient completed a lower extremity strengthening and stabilization program, in a seated position, as per flow sheet. Patient's L knee AAROM is -12-85 degrees with moderate overpressure into extension. She ends with cryocuff to L knee. ASSESSMENT: Patient tolerated session well, with complaint of L knee pain with ther ex and gait training. Patient was able to tolerate a progression in gait distance with FWW support and SBA. Patient would benefit from continued gait and transfer training as well as strengthening for improved mobility and improved ability to perform daily functional tasks at a more independent level. PLAN: Continue with PTs POC TREATMENT CODE/TIME: 40 minutes; [id number] x2, [id number]
--- NOTE | 2019-04-11 14:12 | PDOC.CMDIS ---
- If Service Date Differs Date of service: 04/11/19 Time of Service: 14:12 LACE Index Scoring Tool - Questions: Length of Stay (in days): 3 Acuity (Admit via E.D.?): No E.D. Visits: 0 - Answers: Total Score: 3 Risk of Readmission: Low Risk Care Management Discharge Reason for Hospitalization: s/p L TKA Discharge Plan: Edna is being discharged home today she will follow up with as outpatient and outpatient PT. She does not need equipment at time of discharge and she has a FWW already. Edna will be transported home via private car with family at time of discharge. Patient/Family Education Needs: Discharge education, limitations and follow up plan of care.
== END 2019-04-11 12:04 | disposition home or self-care (01) | DRG 470 ==
LOC: PDS 08:53 → MS 13:05
PROVIDERS: Admitting Provider Student in an Organized Health Care Education/Training Program; PCP Family Medicine; Visit Provider Student in an Organized Health Care Education/Training Program
PROC: 0SRD0J9 Replacement of Left Knee Joint with Synthetic Substitute, Cemented, Open Approach (ICD-10-PCS; CPT 27447; principal; 2019-04-09 11:00)
DX: M17.12 Unilateral primary osteoarthritis, left knee (principal); K91.89 Other postprocedural complications and disorders of digestive system; R11.0 Nausea; Z96.652 Presence of left artificial knee joint; G89.18 Other acute postprocedural pain; Y83.1 Surgical operation with implant of artificial internal device as the cause of abnormal reaction of the patient, or of later complication, without mention of misadventure at the time of the procedure; R20.0 Anesthesia of skin
CPT/HCPCS: 27447; 36415; 76942; 80048; 85027; 97110; 97161; 97530; NC; 82310; J0690; J1885; J2060; J2250; J2405

== ENCOUNTER 2019-04-24 15:31 | Outpatient (CLI) | payer MEDICARE, BC, SELFPAY ==
--- NOTE | 2019-04-24 15:03 | DI.RAD_ITS ---
SYMPTOMS/DIAGNOSIS: F/U LEFT TOTAL KNEE ARTHROPLASTY LEFT KNEE: The patient is status post TKA. LEG LENGTH: The left leg measures 85 cm, the right leg measures 85 cm. The patient is status post left TKA, the prosthesis in good position, surrounding bone intact. There are degenerative changes involving the right knee.
== END 2019-04-24 15:51 ==
PROVIDERS: PCP Family Medicine; Referring Provider Family Medicine; Visit Provider Student in an Organized Health Care Education/Training Program
DX: M17.12 Unilateral primary osteoarthritis, left knee (principal); Z96.652 Presence of left artificial knee joint; Z47.1 Aftercare following joint replacement surgery
CPT/HCPCS: 73560; 77073

== ENCOUNTER → 2019-05-22 09:46 | Outpatient (BNVA) | payer MEDICARE, BC, SELFPAY | PROVIDERS: Referring Provider Family Medicine; Visit Provider Student in an Organized Health Care Education/Training Program | DX: M17.12 Unilateral primary osteoarthritis, left knee (principal); Z47.1 Aftercare following joint replacement surgery; Z96.652 Presence of left artificial knee joint ==

== ENCOUNTER → 2019-05-30 09:09 | Outpatient (BNVA) | payer MEDICARE, BC, SELFPAY | PROVIDERS: Visit Provider Psychiatry & Neurology Neurology | DX: R29.898 Other symptoms and signs involving the musculoskeletal system (principal); Z96.652 Presence of left artificial knee joint | CPT/HCPCS: 95886; 95908; 99203; 99214 ==

== ENCOUNTER 2019-06-14 10:38 | Outpatient (CLI) | payer MEDICARE, BC, SELFPAY ==
--- NOTE | 2019-06-14 09:51 | DI.RAD_ITS ---
SYMPTOM/DIAGNOSIS: MEDIAL LT KNEE PAIN LEFT KNEE: Three views. Comparison is made with 04/24/19 and 03/27/19. There are again seen post surgical changes of a left total knee replacement. The orthopedic hardware appears in good position. The bones are intact and normally mineralized. No radiopaque foreign bodies are seen in the soft tissues. IMPRESSION: Stable left TKR.
== END 2019-06-14 10:58 ==
PROVIDERS: Visit Provider Student in an Organized Health Care Education/Training Program
DX: M25.562 Pain in left knee (principal); M17.12 Unilateral primary osteoarthritis, left knee; Z96.652 Presence of left artificial knee joint; Z47.1 Aftercare following joint replacement surgery; R29.898 Other symptoms and signs involving the musculoskeletal system
CPT/HCPCS: 73562

== ENCOUNTER → 2019-07-11 10:44 | Outpatient (BNVA) | payer MEDICARE, BC, SELFPAY | PROVIDERS: Visit Provider Student in an Organized Health Care Education/Training Program | DX: M17.12 Unilateral primary osteoarthritis, left knee (principal); M25.562 Pain in left knee; R29.898 Other symptoms and signs involving the musculoskeletal system; Z96.652 Presence of left artificial knee joint; Z47.1 Aftercare following joint replacement surgery ==

== ENCOUNTER 2020-04-17 09:13 | Outpatient (CLI) | payer MEDICARE, BC, SELFPAY ==
--- NOTE | 2020-04-17 08:00 | DI.RAD_ITS ---
EXAM: XR KNEE LT 2V AP,LAT CLINICAL HISTORY: f/u L TKA TECHNIQUE: COMPARISON: CR XR knee LT 3V AP,lat,rashad from 06/14/2019 FINDINGS: Two views were obtained and show total knee joint replacement in position. The components appear wel l seated. No other significant bony abnormality seen. IMPRESSION:
== END 2020-04-17 09:33 ==
PROVIDERS: PCP Family Medicine; Referring Provider Family Medicine; Visit Provider Student in an Organized Health Care Education/Training Program
DX: Z96.652 Presence of left artificial knee joint (principal); Z47.1 Aftercare following joint replacement surgery; M25.562 Pain in left knee
CPT/HCPCS: 99214; 73560

== ENCOUNTER 2020-04-20 08:36 | Outpatient (CLI) | payer MEDICARE, BC, SELFPAY ==
[2020-04-20 23:14] LABS: COVID-19 RT-PCR UVMMC Result Negative (Negative)
== END 2020-04-20 08:56 ==
PROVIDERS: PCP Family Medicine; Visit Provider Student in an Organized Health Care Education/Training Program
DX: Z01.818 Encounter for other preprocedural examination (principal); Z03.818 Encounter for observation for suspected exposure to other biological agents ruled out
CPT/HCPCS: U0003

== ENCOUNTER 2020-04-22 09:58 | Day surgery (SDC) | payer MEDICARE, BC, SELFPAY ==
[2020-04-22] VITALS (9 sets, daily range): BP systolic 93–141; BP diastolic 44–95; PULSE 44–65; RESP 10–16; TEMP 35.6–36.3; O2SAT 92–100
--- NOTE | 2020-04-22 10:06 | W.PM.DSUDISC ---
Discharge Plan Disposition Patient Disposition: HOME Condition: Good Discharge Details Reason For Visit: arthrofibrosis of left TKA Attending Provider: Galo Monk Primary Care Provider: Sherrie Torres Home Meds and New Rx's Prescriptions: New hydrocodone-acetaminophen 5-325 mg tablet 1 tab PO Q6H PRN (Reason: severe pain) Qty: 6 RF: 0 acetaminophen 500 mg tablet 500 mg PO Q6H PRN (Reason: pain) Qty: 60 RF: 2 ibuprofen 600 mg tablet 600 mg PO TID PRN (Reason: pain) Qty: 60 RF: 2 Continued cholecalciferol (vitamin D3) 2,000 unit capsule 2,000 unit PO DAILY RF: 0 Shingrix (PF) 50 mcg/0.5 mL suspension for reconstitution 0.5 ml IM ONCE Qty: 1 RF: 1 bupropion HCl 150 mg tablet extended release 24 hr 150 mg PO QAM Qty: 90 RF: 4 levothyroxine 50 mcg tablet 50 mcg PO DAILY Qty: 90 RF: 2 simvastatin 20 mg tablet 20 mg PO DAILY Qty: 90 RF: 2 omeprazole 20 mg capsule,delayed release(DR/EC) 20 mg PO DAILY Qty: 90 RF: 3 Discontinued acetaminophen 500 mg tablet 1,000 mg PO Q8H PRN (Reason: pain) Qty: 90 RF: 3 Discharge Instructions Additional Instructions: Knee Manipulation Discharge Instructions Activity: You should begin moving as soon as possible. You may work on flexion but also equally maintain extension. You may bear weight as tolerated, using crutches only for support/comfort. You should apply ice to help with swelling and elevate when possible (especially in the first few days). Dressings: The knee dressing may come down after 48 hours. You may shower and get the wound wet at that time. You should keep the wounds covered with a bandaid until follow-up. Medications: - Rarely does this require any stronger pain medications, however you have been prescribed a few doses of narcotic pain medication, hydrocodone-acetaminophen, that should be taken if pain is severe after taking your other pain medications. - Recommend to take up to 1000mg of Acetaminophen (Tylenol) and 600mg of Ibuprofen (Advil) every 8 hours as needed. These larger strength tablets were called in but you also may use [id number]. Follow-up: 7-10 days Referrals: Galo Monk MD [ [facility] STAFF PHYSICIAN] - Equipment/Supplies: Partial Weight Bearing Crutches Activity:: Activity as Tolerated Remove Dressings/Wound Care:: 48 hours Shower/Bathe:: 48 hours Diet:: As Tolerated Discharge Orders Discharge Orders: Discharge Order (Routine); Ordered 04/22/20 Ordered By: Giovana Prieto DS: Diagnosis Discharge Diagnosis (1) History of total left knee replacement (TKR): Status: Chronic
[2020-04-22] MEDS: Lactated Ringers 1,000 ML 80 ML IV (11:15)
[2020-04-22] MEDS: ceFAZolin 2 GM/50 ML BAG IVPB (12:02)
[2020-04-22] MEDS: Bupivacaine 0.5% Pres-Free 30 ML VIAL (12:30)
[2020-04-22] MEDS: fentaNYL 100 MCG/2 ML VIAL IVP (13:13)
[2020-04-22] MEDS: HYDROcodone 5/Acetaminophen 325 TAB PO (14:20)
--- NOTE | 2020-04-23 07:18 | ROE_ITS ---
Date of service: 04/22/20 Time of Service: 14:18 Operative Note Operative Note DATE OF PROCEDURE: 04/22/20 PRE-OP DIAGNOSIS: Left knee arthrofibrosis POST-OP DIAGNOSIS: same SURGEON: Galo Monk DIRECTOR OF PHYSICAL SECURITY: Braden Sweet ANESTHESIA: GETA ESTIMATED BLOOD LOSS: 0 PATHOLOGY: none sent TOURNIQUET TIME: 0 COMPLICATIONS: None Patient was transported to: PACU Patient's condition: stable Indications: I have seen Edna in clinic for symptoms of knee stiffness after a total knee replacement. Her initial replacement course was complicated by significant quad apprehension and lack of extension. The extension improved as did her quad strength. However, she presented with notable restriction in flexion. She has been diligent with physical therapy and with home-based exercises. Therefore, I offered arthroscopic synovectomy with manipulation under anesthesia. I reviewed the risks of the procedure to include, but not limited to, bleeding, infection, pain, stiffness, damage to nerves or vessels, recurrence, blood clot. Despite these risks, the patient elected to proceed. Findings: Preoperative range of motion was approximately 3 to 95 degrees. Postoperative range of motion was approximate 3 to 135 degrees. Procedure Description: Edna was greeted in the preoperative holding area where the correct side was identified and marked. The consent was reviewed with the patient and signed. The history and physical was updated. All questions were answered. She was taken back to the operating room. The patient was placed into the supine position on the operating room table. A nonsterile tourniquet was placed high onto the leg but not used. All bony prominences were well padded. Prophylactic antibiotics in the form of cefazolin were administered. The left leg was then prepped with Chloraprep and draped in a standard fashion with stockinette and extremity drape. A timeout to confirm correct identity, side and site, procedure, allergies, anesthesia, and medical concerns was performed. The leg was placed into a pneumatic leg delgado, [id number]. A standard lateral portal was made at the lateral border of the patella tendon in line with the inferior pole of the patella, soft spot. The skin and deep tissue was incised sharply and the blunt trochar was inserted atraumatically. Visualization of the knee was limited by the tight patellofemoral compartment. There is notable scarring adherent to the patella and superior to it. I then made a superolateral portal under spinal needle localization. Using electrocautery I was able to start releasing some the scar tissue circumferentially around the patella. I also moved into the medial lateral gutters. This helped increase the space in the patella. I then was able to dance a scope more superiorly and have a visualization of the suprapatellar pouch. There was notable scarring in this area. Once again, using light cardio resected any of the attachments between the anterior femur and the undersurface of the extensor mechanism. This was taken all the way proximally until muscle was seen of the quadriceps. I then further debrided down the medial lateral gutters. I was able to use all of this with the superolateral portal. Shaver and electrocautery was used. There is very little dense scarring seen in the gutters themselves. The majority of it was around the patella and superiorly. Any debris was then removed with the shaver. The arthroscope was brought back into the suprapatellar pouch and the leg was in full extension. The knee was thoroughly irrigated with the arthroscopic fluid on high flow and pressure. Inflow was stopped and excess fluid was removed. Muscle relaxant dose was then administered by anesthesia and manipulation was performed once the medication was on board. With very little effort I was able to get her 220 degrees. With some gentle pressure there was notable audible and palpable tearing with improvement of motion to 135 degrees. The wounds were closed with 4-0 Nylon. They were dressed with Xeroform, 4x4 gauze, ABD pad, Kerlix and an NAGI wrap. A cryo-cuff was applied. The patient tolerated the procedure well and was returned to the Same Day Surgery area in a stable condition suffering no known complication.
== END 2020-04-22 15:37 | disposition home or self-care (01) ==
PROVIDERS: PCP Family Medicine; Visit Provider Student in an Organized Health Care Education/Training Program
PROC: (CPT 29870; principal; 2020-04-22 12:00)
PROC: (CPT 27570; 2020-04-22 12:00)
DX: T84.82XA Fibrosis due to internal orthopedic prosthetic devices, implants and grafts, initial encounter (principal); Z96.652 Presence of left artificial knee joint
CPT/HCPCS: 29884; J0690; J1100; J1885; J2405; J2704; J3010

== ENCOUNTER → 2020-05-04 15:20 | Outpatient (BNVA) | payer MEDICARE, BC, SELFPAY | PROVIDERS: PCP Family Medicine; Referring Provider Family Medicine; Visit Provider Student in an Organized Health Care Education/Training Program | DX: Z47.89 Encounter for other orthopedic aftercare (principal); M24.662 Ankylosis, left knee ==

== ENCOUNTER → 2020-06-01 10:24 | Outpatient (BNVA) | payer MEDICARE, BC, SELFPAY | PROVIDERS: PCP Family Medicine; Referring Provider Family Medicine; Visit Provider Student in an Organized Health Care Education/Training Program | DX: Z47.1 Aftercare following joint replacement surgery (principal); Z96.652 Presence of left artificial knee joint ==

== ENCOUNTER 2020-06-22 09:12 | Outpatient (CLI) | payer MEDICARE, BC, SELFPAY ==
--- NOTE | 2020-06-22 08:00 | DI.RAD_ITS ---
EXAM: XR FOOT RT COMPLETE CLINICAL HISTORY: right foot pain. TECHNIQUE: 2D digital imaging was performed. COMPARISON: No exams were available for comparison FINDINGS: There is a mild hallux valgus deformity. Degenerative changes are seen at the 1st MTP joint. Degene rative changes are also seen at the articulation of the sesamoids with the head of the 1st metatarsal . Osseous densities are seen adjacent to the cuboid. These appear well-corticated and are likely ol d. No acute fracture or dislocation is seen. The soft tissues are unremarkable. Bones are normally mineralized. IMPRESSION: Degenerative changes of the right foot. DATA REPOSITORY: RADIATION DOSE DELIVERED:
== END 2020-06-22 09:32 ==
PROVIDERS: PCP Family Medicine; Referring Provider Family Medicine; Visit Provider Student in an Organized Health Care Education/Training Program
DX: M19.071 Primary osteoarthritis, right ankle and foot (principal); M79.671 Pain in right foot
CPT/HCPCS: 99213; 73630

== ENCOUNTER 2020-07-01 01:17 | Outpatient (CLI) | payer MEDICARE, BC, SELFPAY ==
--- NOTE | 2020-07-01 13:45 | DI.MRI_ITS ---
EXAM: MR LOWER EXTREMITY RT WO CLINICAL HISTORY: ASSESS CUBOID/SURROUNDING FOCAL OSSIFICATION, RT FT PAIN, M79.671. TECHNIQUE: Multiplanar multisequence MRI was performed. COMPARISON: CR XR FOOT RT COMPLETE from 06/22/2020 FINDINGS: Ossific densities seen on plain film adjacent to the inferolateral aspect of the cuboid are difficult to visualize on MRI. They may be closely associated with the peroneus longus and brevis tendons. T here does appear to be edema and some high signal within a focal portion of the peroneus longus tendo n as it passes adjacent to the lateral aspect of the anterior calcaneus. The remaining tendons are u nremarkable. The marrow signal is normal. IMPRESSION: Focal tendinosis of the peroneus longus tendon adjacent to the inferolateral aspect of the distal poppy caneus. Ossific densities seen adjacent to the cuboid on plain films are not well visualized by MRI. DATA REPOSITORY:
== END 2020-07-01 01:37 ==
PROVIDERS: PCP Family Medicine; Visit Provider Student in an Organized Health Care Education/Training Program
DX: M76.71 Peroneal tendinitis, right leg (principal); M79.671 Pain in right foot
CPT/HCPCS: 73718

== ENCOUNTER 2021-07-22 04:00 | Outpatient (CLI) | payer MEDICARE, BC, SELFPAY ==
[2021-07-22 13:46] LABS: ALT 26 U/L (14-59); AST 17 U/L (15-37); Albumin 3.8 g/dL (3.4-5.0); Alkaline Phosphatase 103 U/L (46-116); Anion Gap 9.4 mmol/L (3-11); BUN 16 mg/dL (7-18); Bilirubin, Total 0.6 mg/dL (0.2-1.0); CO2 27.6 mmol/L (21.0-32.0); CREATININE 1.1 mg/dL (0.55-1.02); Calcium 9.2 mg/dL (8.5-10.1); Calculated LDL 141 mg/dL (<100); Chloride 106 mmol/L (98-107); Cholesterol 234 mg/dL (<200); Estimated GFR 48.96 (mL/min/1.73m2); Glucose 77 mg/dL (74-106); HDL Cholesterol 70 mg/dL (40-60); Potassium 4.4 mmol/L (3.5-5.1); Sodium 143 mmol/L (136-145); TSH 1.72 uIU/mL (0.36-3.74); Total Protein 7.1 g/dL (6.4-8.2); Triglyceride 117 mg/dL (<150)
== END 2021-07-22 04:01 | disposition home or self-care (01) ==
LOC: LBO 04:00
PROVIDERS: PCP Family Medicine; Visit Provider Family Medicine
DX: E03.9 Hypothyroidism, unspecified (principal); E78.5 Hyperlipidemia, unspecified
CPT/HCPCS: 36415; 80053; 80061; 84443

== ENCOUNTER 2022-07-12 01:33 | Outpatient (CLI) | payer MEDICARE, BC, SELFPAY ==
[2022-07-12 10:07] LABS: HCT 43.8 % (36.0-46.0); MCH 28.2 pg (27.0-33.0); MCV 88 fL (80-95); MPV 9.6 fL (8.0-11.0); Platelet Count 265 10^3/uL (130-400); RBC 4.96 10^6/uL (3.93-5.22); RDW 13.3 % (11.7-14.6); RDW-SD 43.3 fL; WBC 5.66 10^3/uL (4.4-10.8)
[2022-07-12 10:37] LABS: ALT 29 U/L (14-59); AST 18 U/L (15-37); Albumin 3.4 g/dL (3.4-5.0); Alkaline Phosphatase 91 U/L (46-116); Anion Gap 6.3 mmol/L (3-11); BUN 17 mg/dL (7-18); Bilirubin, Total 0.5 mg/dL (0.2-1.0); CO2 29.7 mmol/L (21.0-32.0); CREATININE 1.1 mg/dL (0.55-1.02); Calculated LDL 131 mg/dL (<100); Chloride 106 mmol/L (98-107); Cholesterol 224 mg/dL (<200); Estimated GFR 53.39 (mL/min/1.73m2); Glucose 89 mg/dL (74-106); HDL Cholesterol 68 mg/dL (40-60); Potassium 3.9 mmol/L (3.5-5.1); Sodium 142 mmol/L (136-145); TSH (W/Ref FT4) 1.91 uIU/mL (0.36-3.74); Total Protein 7.4 g/dL (6.4-8.2); Triglyceride 127 mg/dL (<150)
== END 2022-07-12 01:34 | disposition home or self-care (01) ==
LOC: LBO 01:33
DX: F32.9 Major depressive disorder, single episode, unspecified (principal); K21.9 Gastro-esophageal reflux disease without esophagitis; R42 Dizziness and giddiness; E03.9 Hypothyroidism, unspecified; E78.5 Hyperlipidemia, unspecified; D64.9 Anemia, unspecified
CPT/HCPCS: 36415; 80053; 80061; 85027; 84443

== ENCOUNTER → 2024-05-01 00:37 | Outpatient (CLI) | payer MEDICARE, BC, SELFPAY ==
--- NOTE | 2024-05-01 07:00 | DI.RAD_ITS ---
Exam(s) XR KNEE LT 2V AP,LAT EXAM: XR KNEE LT 2V AP,LAT INDICATION: LEFT KNEE/MELLO PAIN,H/O TOTAL KNEE REPLACEMENT,Z96.652. COMPARISON: CR XR KNEE LT 2V AP,LAT from 04/17/2020 TECHNIQUE: 2D digital imaging was performed. Two views. FINDINGS: Stable appearance of total knee prosthesis. No abnormal bony lucencies. DATA REPOSITORY: RADIATION DOSE DELIVERED:
--- NOTE | 2024-05-01 07:00 | DI.RAD_ITS ---
Exam(s) XR TIB/FIB LT EXAM: XR TIB/FIB LT CLINICAL HISTORY: left knee/kaufman pain,Z96.652. TECHNIQUE: 2D digital imaging was performed. Two views. COMPARISON: CR XR standing alignment from 04/24/2019 CR XR KNEE LT 2V AP,LAT from 05/01/2024 FINDINGS: BONES: No acute fracture is present. No bony destructive lesion is seen. Total knee prosthesis is unr emarkable. Ankle mortise is maintained. No significant degenerative changes at the ankle. SOFT TISSUE: mild venous varicosities. IMPRESSION: No acute abnormality. DATA REPOSITORY: RADIATION DOSE DELIVERED:
== END ==
PROVIDERS: PCP Nurse Practitioner Family; Visit Provider Student in an Organized Health Care Education/Training Program
DX: Z96.652 Presence of left artificial knee joint (principal)
CPT/HCPCS: 73560; 73590

== ENCOUNTER 2024-05-20 11:36 | Outpatient (CLI) | payer MEDICARE, BC, SELFPAY ==
--- NOTE | 2024-05-20 11:15 | DI.RAD_ITS ---
Exam(s) XR KNEE LT 1V EXAM: XR KNEE LT 1V CLINICAL HISTORY: painful L tka. TECHNIQUE: 2D digital imaging was performed. Single merchant's view. COMPARISON: CR XR KNEE LT 2V AP,LAT from 04/17/2020 CR XR KNEE LT 2V AP,LAT from 05/01/2024 FINDINGS: BONES: Total knee prosthesis noted. No acute fracture is present. No bony destructive lesion is seen . JOINTS: The patellofemoral joint is normally aligned. No joint effusion is seen. SOFT TISSUE: Normal. IMPRESSION: Satisfactory alignment of the patellofemoral joint. DATA REPOSITORY: RADIATION DOSE DELIVERED:
== END 2024-05-20 11:37 | disposition home or self-care (01) ==
LOC: DIORS 11:37
PROVIDERS: PCP Nurse Practitioner Family; Referring Provider Nurse Practitioner Family; Visit Provider Student in an Organized Health Care Education/Training Program
DX: T84.84XA Pain due to internal orthopedic prosthetic devices, implants and grafts, initial encounter (principal); Z96.652 Presence of left artificial knee joint; M24.662 Ankylosis, left knee
CPT/HCPCS: 99203; 73560

== ENCOUNTER 2024-06-12 01:10 | Outpatient (CLI) | payer MEDICARE, BC, SELFPAY ==
--- NOTE | 2024-06-12 | DI.NM_ITS ---
Exam(s) NM BONE SCAN 3 PHASE EXAM: NM BONE SCAN 3 PHASE CLINICAL HISTORY: PAINFUL TOTAL KNEE REPLACEMENT,LT,Z96.652,T84,84XA. TECHNIQUE: Injected Dose: 26.5 mCi Tc-99m MDP COMPARISON: CR XR KNEE LT 2V AP,LAT from 05/01/2024 CR XR TIB/FIB LT from 05/01/2024 CR XR KNEE LT 1V from 05/20/2024 FINDINGS: Perfusion: Mild hyperemia around left knee. Blood Pool: Increased activity around the left knee prosthesis. Delayed: Diffuse mildly increased activity around the knee prosthesis. Findings could indicate loose norbert. Infection also possibility. With the remainder of the skeletal uptake is unremarkable. IMPRESSION: Increased activity on all 3 phases of around the left total knee prosthesis. Findings could indicate infection versus loosening. DATA REPOSITORY:
== END 2024-06-12 01:30 ==
LOC: DI 01:13
PROVIDERS: PCP Nurse Practitioner Family; Visit Provider Student in an Organized Health Care Education/Training Program
DX: Z96.652 Presence of left artificial knee joint (principal); T84.84XA Pain due to internal orthopedic prosthetic devices, implants and grafts, initial encounter; X58.XXXA Exposure to other specified factors, initial encounter
CPT/HCPCS: 78315

== ENCOUNTER 2024-06-17 02:35 | Outpatient (CLI) | payer MEDICARE, BC, SELFPAY ==
--- NOTE | 2024-06-17 08:00 | DI.CT_ITS ---
Exam(s) CT LOWER EXTREMITY LT WO EXAM: CT LOWER EXTREMITY LT WO CLINICAL HISTORY: PAIN, ?LOOSENING,t84.84xa,z96.652. TECHNIQUE: Imaging Protocol: Axial computed tomography images with coronal and sagittal reformatted images were created and reviewed. CONTRAST MATERIAL: Noncontrast COMPARISON: CR XR KNEE LT 2V AP,LAT from 05/01/2024 CR XR TIB/FIB LT from 05/01/2024 CR XR KNEE LT 1V from 05/20/2024 NM NM BONE SCAN 3 PHASE from 06/12/2024 FINDINGS: There is artifact related to the total knee prosthesis. Limited evaluation at this level. Bones: There is no evidence of fracture or dislocation. No cellulitic or osteomyelitic changes are identified. No lytic or sclerotic lesions are identified. No findings to suggest loosening. Joints: Total knee prosthesis. Small joint effusion. Soft Tissues: Normal. IMPRESSION: No definite evidence loosening of the total knee prosthesis. Small joint effusion. RADIATION DOSE DELIVERED: Total DLP DATA REPOSITORY: All CT scans at this facility are submitted to the National Radiology Data Registry (NRDR) Dose Index Registry (DIR) with the [employer] ([employer]). RADIATION OPTIMIZATION: All CT scans at this facility use at least one of these dose optimization te chniques: automated exposure control; mA and/or kV adjustment per patient size (includes targeted exa ms where dose is matched to clinical indication); or iterative reconstruction.
== END 2024-06-17 02:55 ==
LOC: DI 02:35
PROVIDERS: PCP Nurse Practitioner Family; Visit Provider Student in an Organized Health Care Education/Training Program
DX: T84.84XA Pain due to internal orthopedic prosthetic devices, implants and grafts, initial encounter (principal); Z96.652 Presence of left artificial knee joint
CPT/HCPCS: 36415; 85652; 73700; 86140

== ENCOUNTER 2024-06-17 16:48 | Outpatient (CLI) | payer MEDICARE, BC, SELFPAY ==
[2024-06-17 12:53] LABS: ESR 7 mm/hr (0-30)
[2024-06-17 13:38] LABS: C-Reactive Protein 0.51 mg/dL (<or=0.5)
== END 2024-06-17 16:49 | disposition home or self-care (01) ==
LOC: LBO 16:49
PROVIDERS: PCP Nurse Practitioner Family; Visit Provider Student in an Organized Health Care Education/Training Program
DX: T84.84XA Pain due to internal orthopedic prosthetic devices, implants and grafts, initial encounter (principal); Z96.652 Presence of left artificial knee joint
CPT/HCPCS: 36415; 85652; 86140

== ENCOUNTER → 2024-06-20 09:09 | Outpatient (BNVA) | payer MEDICARE, BC, SELFPAY | PROVIDERS: PCP Nurse Practitioner Family; Referring Provider Nurse Practitioner Family; Visit Provider Student in an Organized Health Care Education/Training Program | DX: Z47.1 Aftercare following joint replacement surgery (principal); T84.84XA Pain due to internal orthopedic prosthetic devices, implants and grafts, initial encounter; Z96.652 Presence of left artificial knee joint; M24.662 Ankylosis, left knee | CPT/HCPCS: 99215 ==